=== PATIENT | male | born 1975 | race Caucasian/White ===

== ENCOUNTER 2021-04-01 18:12 | Emergency (ER) | payer OTHER ==
[2021-04-01 18:19] VITALS: O2SAT 98
[2021-04-01] MEDS ORDERED: TYLENOL 325 MG PO ONE (18:51)
[2021-04-01 19:00] LABS: Absolute Neutrophil Ct (ANC) 8.14 (1.4-6.9); Basophil (Absolute #) 0.03 (0-0.4); Eosinophil % 2.9 % (0.00-5.0); Eosinophil (Absolute #) 0.32 (0-0.5); Hematocrit 44.6 % (42-50); Hemoglobin 14.9 gm/dl (12.5-18.0); Lymphocyte (Absolute #) 1.95 (1.0-4.6); Lymphocytes % 17.6 % (24.0-44.0); Mean Cell Volume 89.6 fl (78-100); Mean Corpuscular Hemoglobin 29.9 pg (26-32); Mean Corpuscular Hgb Concent. 33.4 g/dl (32-36); Monocyte (Absolute #) 0.66 (0.0-1.3); Monocytes % 5.9 % (0.0-12.0); Neutrophil % 73.3 % (36.0-66.0); Platelet Count 292 K/mm3 (150-450); Red Blood Count 4.98 M/mm3 (4.1-5.6); Red Cell Distribution Width 13.7 % (11.5-14.0); White Blood Count 11.1 K/mm3 (4.0-10.5)
[2021-04-01 19:06] LABS: ALBUMIN 4.4 g/dL (3.5-5.0); ALKALINE PHOSPHATASE 77 U/L (38-126); ANION GAP 14.5 MEQ/L (5-15); BLOOD UREA NITROGEN 12 mg/dL (9-20); CHLORIDE 101 mmol/L (98-107); CK-Creatinine Phosphokinase 300 U/L (55-170); Calcium 9.4 mg/dL (8.4-10.2); Carbon Dioxide 27 mmol/L (22-30); Creatinine 1 1.09 mg/dL (0.66-1.25); EST GLOMERULAR FILTRATION RATE > 60.0 ML/MIN; Glucose 104 mg/dL (74-106); Potassium 4.1 mmol/L (3.5-5.1); SGOT/AST 28 U/L (17-59); SGPT/ALT 21 U/L (0-50); SODIUM 138 mmol/L (137-145); Total Protein 7.2 g/dL (6.3-8.2)
[2021-04-01] MEDS ORDERED: TYLENOL 325 MG ONE (19:07)
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
[2021-04-01 19:16] VITALS: BP 157/91; PULSE 115
[2021-04-01] MEDS ORDERED: Sodium Chloride 0.9% 1000 ML 1,000 ML IV STA (19:34)
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
== END 2021-04-01 19:46 | disposition left against medical advice (07) ==
LOC: ED 18:12
DX: S06.0X0A Concussion without loss of consciousness, initial encounter (principal); W50.0XXA Accidental hit or strike by another person, initial encounter; Y93.75 Activity, martial arts; M62.82 Rhabdomyolysis; F15.90 Other stimulant use, unspecified, uncomplicated; I10 Essential (primary) hypertension; F41.9 Anxiety disorder, unspecified; R42 Dizziness and giddiness; Z63.5 Disruption of family by separation and divorce; Z72.0 Tobacco use
CPT/HCPCS: 36000; 36415; 70450; 80053; 82550; 83605; 84484; 85025; 93005; 99284; A9270-GY